=== PATIENT | female | born 1985 | race Two or more races ===

== ENCOUNTER → 2024-07-09 | Outpatient (CLI) | payer OTHER, SELFPAY ==
--- NOTE | 2024-07-09 15:30 | XR_ITS ---
Examination: CT maxillofacial, without intravenous contrast. 2-D sagittal reconstructions. 3-D reconstructions. Date and time of exam:July 09, 2024 1535 hours INDICATIONS: Sinus pressure and pain 5 years CTDI: vol (mGy):6.49 DLP: (mGycm 89.5 Technique: Multiple axial images of maxillofacial region, 3.0 mm slice thickness. 2-D sagittal and coronal reconstructions. 3-D reconstructions. Low dose protocols were performed. One or more of the following dose reduction techniques were used; automated exposure control, adjustment of the mA and/or KV according to patient size, use of iterative reconstruction technique. Findings: Mucosal disease in the frontal air cells measuring up to 6 mm in thickness Marked mucosal disease in the ethmoid air cells greater on the right side, occlusion of the ostiomeatal complexes Marked mucosal disease in the maxillary antra bilaterally measuring up to 17 mm in thickness Deviation nasal septum to the right 5 mm Hypertrophy left middle left inferior nasal turbinates Prominent opacification of the sphenoid air cells with fluid levels Also fluid level right maxillary antrum Negative for otitis media Symmetrical internal auditory canals Mild fullness of the nasopharyngeal soft tissue sagittal image 57 No cerebral mass lesion noted IMPRESSION: Significant pansinusitis Acute sphenoid right maxillary sinusitis
== END | disposition home or self-care (01) ==
PROVIDERS: PCP Internal Medicine; Referring Provider Otolaryngology; Visit Provider Otolaryngology
DX: J32.4 Chronic pansinusitis (principal); J01.80 Other acute sinusitis
CPT/HCPCS: 70486

== ENCOUNTER 2024-09-17 13:00 | Day surgery (SDC) | payer OTHER, SELFPAY ==
--- NOTE | 2024-09-16 08:08 | EKG_ITS ---
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
[2024-09-16 11:39] VITALS: BMI 35.3
--- NOTE | 2024-09-16 12:05 | SUR.PREOP ---
Pt has a cold sore on and in right nostril, it's almost healed, Dr Calhoun notified and instructions given for pt to apply antibiotic ointment and ok to proceed with hoda.
[2024-09-16 13:32] LABS: HCG Qualitative,Urine Negative
[2024-09-17] VITALS (8 sets, daily range): BP systolic 103–134; BP diastolic 62–85; PULSE 83–99; RESP 12–19; TEMP 36.4–36.8; O2SAT 96–100; BMI 34.5
[2024-09-17] MEDS: RINGERS LACTATED 1000 ML 1,000 ML 20 ML IV (13:39)
[2024-09-17] MEDS: OXYMETAZOLINE NAS SPRY 0.05% 15 ML BTL NASAL (13:50)
--- NOTE | 2024-09-17 15:40 | PD.SUROPNT ---
Date of Procedure 09/17/24 Pre Op Diagnosis Nasal septal deviation with obstruction Bilateral chronic pansinusitis Bilateral inferior turbinate hypertrophy Post Op Diagnosis Nasal septal deviation with obstruction bilateral chronic pansinusitis bilateral inferior turbinate hypertrophy Procedure Intranasal septoplasty Bilateral endoscopic frontal recess exploration Bilateral endoscopic maxillary antrostomies Bilateral endoscopic total ethmoidectomies Bilateral endoscopic sphenoidotomies Bilateral submucous resection of the inferior turbinates Findings Nasal septal deviation to the right with a large spur inferiorly and posteriorly. Inferior turbinates were enlarged there was chronic mucosal thickening of the ethmoid sinuses Procedure Description Indications: This is a 39-year-old female with chronic and recurrent sinusitis documented per CT with the above physical findings. Treatment options were discussed as well as surgical risks including bleeding infection nasal deformity iron brain injury and potential need for further surgery. Patient understood this as well as anticipated outcomes and wished to proceed. Patient was transferred to the operative suite where she was anesthetized and intubated and sterilely draped. Timeout was performed. Nasal septum as well as inferior turbinates and later the uncinate processes were injected with 1% lidocaine with 1 100,000 dilution epinephrine. Approximately 8 cc total were used. A caudal rim incision was made on the left side of the septum mucosal flap elevated off the septal cartilage and bone and inferior tunnel created. The posterior quadrangular cartilage was incised with the freer elevator and mucosal flap elevated off the right side. The deviated perpendicular plate was removed with the double-action scissors and Adeline forceps. The spur inferiorly was fractured over the caudal elevator and then removed with a Adeline forceps. This allowed the septum return near midline. Under endoscopic visualization the left middle turbinate was gently medialized and the maxillary sinus ostia was located with the small curved suction and expanded with the through cup forceps removing the posterior lip. The ethmoid bulla was then opened up with a straight Osman suction and removed with the wild forceps. Up-biting through cup forceps were used then used to remove the tissue superiorly and farther posteriorly until the posterior ethmoid cells were open. The sphenoid sinus ostia was opened and expanded with the Osman suction through the natural ostia. Neuro pledget soaked in Afrin was then placed in the ethmoid sinus. A similar procedure was then performed on the right side. First performing the maximal antrostomy followed by the total ethmoidectomy and then frontal recess exploration and cannulation. Sphenoid sinus ostia was then expanded as well. Neuro pledget was then placed into this ethmoid sinus, I went back over to the left side and removed tissue from the frontal recess and then the sinus was cannulated with a small curved suction. MeroGel soaked in Afrin was then placed in each ethmoid sinus after removal of the neuro pledgets. The inferior turbinates were reduced in a submucosal plane with a 2.9 mm turbinate shaver blade first on the left side and then on the right side. Dissection was performed on insertion and withdrawal. Entry sites were cauterized with suction cautery. Mucosal flaps of the septal mucosa were then reapproximated to the underlying cartilage with a 4-0 plain gut suture. This was used to close the rim incision as well. There was minimal oozing present. The patient was awakened and taken the recovery room in stable condition Anesthesia GETA Pathology / specimen Other (Left and right sinus contents) Estimated Blood Loss 50 Surgeon Harrison Calhoun DO Surgical Staff Operation Date: 09/17/24 15:15 Case Staff Anesthesiologist: Urban Ibarra
--- NOTE | 2024-09-17 15:46 | SUR.PHASEI ---
1546: Pt. AAOx4, vitals stable, breathing unlabored, no complaint of pain or nausea, dressing below nose CDI, slight blood on dressing, report received from MD Ibarra and Guille JONES.
--- NOTE | 2024-09-17 16:42 | SUR.PHASEII ---
1642: Pt. AAOx4, vitals stable, breathing unlabored, no complaint of pain or nausea, dressing under nose CDI, no active bleed noted, pt. tolerated bites of ice well, pt. ambulated to wheelchair with steady gait and no assist, no complications. Gave discharge instructions to the pt. and her ride, both verbalized understanding and had no further questions. Pt. left with all personal beloingings.
== END 2024-09-17 16:42 | disposition home or self-care (01) ==
PROVIDERS: PCP Internal Medicine; Referring Provider Otolaryngology; Visit Provider Otolaryngology
PROC: (CPT 30520; principal; 2024-09-17 15:00)
DX: J32.4 Chronic pansinusitis (principal); J34.2 Deviated nasal septum; J34.3 Hypertrophy of nasal turbinates; Z01.810 Encounter for preprocedural cardiovascular examination
CPT/HCPCS: 30520; 30140; 31256; 31257; 31276; 81025; 93005; A4217; A4649; J0131; J0690; J1100; J1885; J2250; J2405; J2704; J3010; J3490; J7040; J7120; A9270; J1805

== ENCOUNTER → 2025-02-11 | Outpatient (CLI) | payer OTHER, SELFPAY ==
--- NOTE | 2025-02-11 09:57 | XR_ITS ---
Examination: PA lateral chest 2 views TECHNIQUE: Upright PA lateral chest 2 views Date and time: February 11, 2025 11:13 AM INDICATIONS: Sinus pressure and pain coughing several weeks. FINDINGS: Normal heart size. Lungs are clear. The osseous structures are intact. IMPRESSION: No active disease.
--- NOTE | 2025-02-11 09:57 | XR_ITS ---
Examination: Sinus series 4 views TECHNIQUE: Leena Nicolas lateral submentovertex sinus series 4 views Date and time: February 11, 2025 1112 hours INDICATIONS: Sinus pressure and pain several weeks. FINDINGS: Opacity in the frontal ethmoid air cells as well as maxillary antra No fluid levels No retention cysts IMPRESSION: Chronic sinusitis
== END | disposition home or self-care (01) ==
PROVIDERS: PCP Internal Medicine; Referring Provider Internal Medicine; Visit Provider Internal Medicine
DX: J39.9 Disease of upper respiratory tract, unspecified (principal); J32.8 Other chronic sinusitis; R05.2 Subacute cough
CPT/HCPCS: 70220; 71046

== ENCOUNTER → 2025-02-12 | Outpatient (CLI) | payer OTHER, SELFPAY ==
[2025-02-12 08:16] LABS: Collection Type, Urine Clean Catch
[2025-02-12 08:52] LABS: Basophils # (Auto) 0.0 Thou/mm3 (0.0-0.2); Basophils % (Auto) 0 % (0-2.5); Eosinophils # (Auto) 0.2 Thou/mm3 (0.0-0.5); Eosinophils % (Auto) 3 % (0-10); Hematocrit 43.3 % (36.0-46.0); Hemoglobin 14.4 g/dL (12.0-16.0); Immature Granulocytes Auto 0.02 Thou/mm3 (0.00-0.00); Lymphocytes # (Auto) 3.3 Thou/mm3 (1.0-4.8); Lymphocytes % (Auto) 36 % (10-50); Mean Corpuscular HGB Conc 33.3 g/dl (31.0-37.0); Mean Corpuscular Hemoglobin 30.3 pg (25.0-35.0); Mean Corpuscular Volume 91 fL (80-100); Monocytes # (Auto) 0.6 Thou/mm3 (0.0-0.8); Monocytes % (Auto) 6 % (0-12); Neutrophils # (Auto) 5.1 Thou/mm3 (1.8-7.7); Neutrophils % (Auto) 55 % (37-80); Nucleated Red Blood Cell # 0.00 Thou/mm3 (0.00-0.00); Nucleated Red Blood Cell % 0 /100 WBC (0); Platelet Count 341 Thou/mm3 (140-440); RDW Standard Deviation 42.4 fL (36.4-46.3); Red Blood Count 4.75 Miln/mm3 (4.00-5.20); White Blood Count 9.2 Thou/mm3 (3.6-11.0)
[2025-02-12 08:54] LABS: Bilirubin,Urine Negative (Negative); Blood,Urine 1+ (Negative); Clarity,Urine Turbid (Clear/Hazy); Color,Urine Yellow (Lt Yel-Yel); Glucose, Urine Negative (Negative); Hyaline Casts,Urine < 1 /hpf (0-1); Ketones,Urine Negative (Negative); Leukocyte Esterase,Urine Negative (Negative); Nitrite,Urine Negative (Negative); PH,Urine 6.0 (5.0-7.0); Protein,Urine Trace (Neg - Trace); RBC,Urine 4 /hpf (0-3); Specific Gravity,Urine 1.027 (1.001-1.035); Squamous Epithelial Cell,Urine 31 /hpf (0-5); Urobilinogen,Urine Negative mg/dL (0.0-1.0); WBC,Urine 1 /hpf (0-5)
[2025-02-12 08:56] LABS: Glucose Estimated Average 114 mg/dL (80-131); Hemoglobin A1C 5.6 % Hgb (4.8-6.0)
[2025-02-12 09:07] LABS: Alanine Aminotransferase 11 U/L (10-49); Albumin, Serum 4.2 gm/dL (3.5-5.0); Albumin/Globulin Ratio 1.6 (1.2-2.2); Alkaline Phosphatase 76 U/L (46-116); Anion Gap 11 (7-16); Aspartate Amino Transferase 15 U/L (0-34); BUN/Creatinine Ratio 11 Ratio (12-20); Bilirubin,Total 0.9 mg/dL (0.3-1.2); Blood Urea Nitrogen 9 mg/dL (9-23); Calcium 8.9 mg/dL (8.3-10.6); Calcium (Corrected) 8.9 mg/dL (8.5-10.1); Carbon Dioxide 25.1 mMol/L (20.0-31.0); Cardiac Risk Estimate 5.0 RATIO (3.7-5.6); Chloride 104 mMol/L (98-107); Cholesterol 171 mg/dL (132-200); Creatinine (Component) 0.8 mg/dL (0.6-1.3); Globulin 2.7 gm/dL (2.3-3.5); Glucose 105 mg/dL (74-106); HDL Cholesterol 34 mg/dL (40-60); LDL Cholesterol,Calculated 115 mg/dL (0-130); Osmolality,Calculated 278 (275-295); Potassium 4.0 mMol/L (3.4-5.1); Sodium 140 mMol/L (136-145); Thyroid Stimulating Hormone 1.48 uIU/mL (0.55-4.78); Total Protein 6.9 gm/dL (5.7-8.2); Triglycerides 111 mg/dL (30-150); Uric Acid 4.9 mg/dL (3.1-7.8); eGFR > 60 See Note
[2025-02-12 09:14] LABS: Vitamin B12 403 pg/mL (211-911); Vitamin D 25 Hydroxy Total 33.6 ng/mL (7.3-40.2)
== END | disposition home or self-care (01) ==
LOC: COPL 06:44
PROVIDERS: PCP Internal Medicine; Referring Provider Internal Medicine; Visit Provider Internal Medicine
DX: Z00.00 Encounter for general adult medical examination without abnormal findings (principal)
CPT/HCPCS: 36415; 80053; 80061; 81001; 82306; 82607; 83036; 84443; 84550; 85025